=== PATIENT | female | born 1995 | race Caucasian/White ===

== ENCOUNTER 2020-04-05 00:35 | Emergency (ER) | payer OTHER ==
[~2020-04-05] VITALS: Ht 175.3 cm; Wt 101.2 kg
[2020-04-05] MEDS ORDERED: KETO10TA2 PO (03:59)
[2020-04-05] MEDS ORDERED: DUI500 PO (03:59)
== END 2020-04-05 04:02 | disposition home or self-care (01) ==
LOC: ER 00:35
DX: S61.422A Laceration with foreign body of left hand, initial encounter (principal); S41.122A Laceration with foreign body of left upper arm, initial encounter; W01.198A Fall on same level from slipping, tripping and stumbling with subsequent striking against other object, initial encounter; Y93.11 Activity, swimming; Y92.838 Other recreation area as the place of occurrence of the external cause; Y99.8 Other external cause status